=== PATIENT | male | born 1965 | race Hispanic/Latino ===

== ENCOUNTER → 2024-10-31 11:04 | Outpatient (REF) | payer OTHER, SELFPAY ==
[2024-10-31 13:21] LABS: Blood Urea Nitrogen 16 mg/dl (9-20); Calcium 9.8 mg/dl (8.4-10.2); Carbon Dioxide 32 mmol/L (22-30); Chloride 103 mmol/L (98-107); Glucose 86 mg/dl (70-99); Potassium 4.2 mmol/L (3.5-5.1); Sodium 140 mmol/L (135-145); eGFR > 60.00
== END ==
LOC: RAD 11:04
PROVIDERS: ATTENDING PHYSICIAN Nurse Practitioner Adult Health; FAMILY PHYSICIAN Nurse Practitioner Adult Health
DX: R10.32 Left lower quadrant pain (principal)
CPT/HCPCS: 36415; 74177; 80048; Q9967

== ENCOUNTER → 2024-12-18 08:43 | Outpatient (REF) | payer OTHER, SELFPAY | LOC: RAD 08:43 | PROVIDERS: ATTENDING PHYSICIAN Nurse Practitioner Adult Health | DX: M89.9 Disorder of bone, unspecified (principal); R97.20 Elevated prostate specific antigen [PSA] | CPT/HCPCS: 78803; A9503 ==

== ENCOUNTER → 2024-12-23 16:50 | Outpatient (REF) | payer OTHER, SELFPAY ==
[2024-12-23 18:30] LABS: Uric Acid 7.3 mg/dl (3.5-8.5)
== END ==
LOC: REG 16:50
PROVIDERS: ATTENDING PHYSICIAN Nurse Practitioner Adult Health
DX: M10.171 Lead-induced gout, right ankle and foot (principal)
CPT/HCPCS: 36415; 73630; 84550

== ENCOUNTER 2025-01-13 06:20 | Day surgery (SDC) | payer OTHER, SELFPAY | END 2025-01-13 10:01 | disposition home or self-care (01) | LOC: GI 06:20 | PROVIDERS: ATTENDING PHYSICIAN Internal Medicine Gastroenterology | DX: Z12.11 Encounter for screening for malignant neoplasm of colon (principal); K57.30 Diverticulosis of large intestine without perforation or abscess without bleeding; K64.8 Other hemorrhoids | CPT/HCPCS: G0121 ==

== ENCOUNTER 2025-01-27 10:13 | Outpatient (RCR) | payer OTHER, SELFPAY | END 2025-01-27 23:59 | disposition home or self-care (01) | LOC: ROT 10:13 | PROVIDERS: ATTENDING PHYSICIAN Orthopaedic Surgery Hand Surgery; FAMILY PHYSICIAN Nurse Practitioner Adult Health | DX: G56.01 Carpal tunnel syndrome, right upper limb; Z47.89 Encounter for other orthopedic aftercare; Z73.6 Limitation of activities due to disability; M62.81 Muscle weakness (generalized) | CPT/HCPCS: 97018; 97022; 97110; 97140; 97166; 97535 ==

== ENCOUNTER 2025-02-10 10:58 | Outpatient (RCR) | payer OTHER, SELFPAY | END 2025-02-10 23:59 | disposition home or self-care (01) | LOC: ROT 10:58 | PROVIDERS: ATTENDING PHYSICIAN Orthopaedic Surgery Hand Surgery; FAMILY PHYSICIAN Nurse Practitioner Adult Health | DX: G56.01 Carpal tunnel syndrome, right upper limb; Z47.89 Encounter for other orthopedic aftercare; Z73.6 Limitation of activities due to disability; M62.81 Muscle weakness (generalized) | CPT/HCPCS: 97018; 97110; 97140 ==